=== PATIENT | female | born 1970 | race Caucasian/White ===

== ENCOUNTER 2025-03-07 23:06 | Emergency (ER) | payer SELFPAY ==
[~2025-03-07] VITALS: Ht 152.4 cm; Wt 78.0 kg
[2025-03-07 23:43] VITALS: TEMP 36.9; O2SAT 100
[2025-03-08] MEDS ORDERED: ONDANSETRON HCL 4MG/2ML INJ IV STA (00:11)
[2025-03-08] MEDS ORDERED: INSULIN REGULAR (HUMULIN R) 1000UNITS/10ML VIAL SUBCUT ONE (00:15)
[2025-03-08] MEDS ORDERED: SODIUM CHLORIDE 0.9% 1,000 ML IV ONE (00:15)
[2025-03-08 00:36] LABS: BASOPHILS % 0.2 % (0.0-2.0); EOSINOPHILS % 0.4 % (0.0-5.0); HEMATOCRIT. 39.2 % (36.0-48.0); HEMOGLOBIN. 13.7 g/dL (12.0-16.0); LYMPHOCYTES % 12.1 % (20.0-50.0); MEAN CORPUSCULAR HEMOGLOBIN 29.4 pg (28.0-32.0); MEAN CORPUSCULAR HGB CONC 34.8 g/dL (31.0-37.0); MEAN CORPUSCULAR VOLUME 84.5 fL (81.0-99.0); MEAN PLATELET VOLUME 8.4 fl (7.4-10.4); MONOCYTES % 3.1 % (2.0-8.0); NEUTROPHILS % 84.2 % (40.0-76.0); PLATELET 191 x1000/uL (130-400); RED BLOOD CELL COUNT 4.64 mill/uL (4.2-5.4); RED CELL DISTRIBUTION WIDTH 12.3 % (11.6-14.6)
[2025-03-08 00:48] LABS: CHLORIDE 96 mEq/L (98-107); POTASSIUM 3.7 mEq/L (3.5-5.1); SODIUM 135 mEq/L (136-145)
[2025-03-08 00:49] LABS: CALCIUM 9.2 mg/dL (8.7-10.4); CARBON DIOXIDE 26 mEq/L (21-32)
[2025-03-08 00:54] LABS: CREATININE 1.2 mg/dL (0.6-1.0); UREA NITROGEN BLOOD 17 mg/dL (9-23)
[2025-03-08 00:56] LABS: ALANINE AMINOTRANSFERASE 12 IU/L (10-49); ALBUMIN 4.3 g/dL (3.2-4.8); ASPARTATE AMINOTRANSFERASE 13 IU/L (<34); BILIRUBIN DIRECT 0.3 mg/dL (<=3.0); PROTEIN TOTAL 7.8 g/dL (6.0-8.3)
[2025-03-08 00:57] LABS: BETA HYDROXYBUTYRATE 0.7 mMol/L (0.0-0.3)
[2025-03-08 01:01] LABS: GLUCOSE 425 mg/dL (70-105)
[2025-03-08 02:05] VITALS: BP 155/78; PULSE 62; RESP 19; O2SAT 99
== END 2025-03-08 02:19 | disposition left against medical advice (07) ==
LOC: ER 23:06
DX: R11.2 Nausea with vomiting, unspecified (principal); E11.65 Type 2 diabetes mellitus with hyperglycemia; Z79.4 Long term (current) use of insulin; Z79.899 Other long term (current) drug therapy
CPT/HCPCS: 82962 ×2; 36415; 99283; 80076; 80048; 82010; 83690; 85025; J2405; J7030; Z7610